=== PATIENT | female | born 1960 | race Hispanic/Latino ===

== ENCOUNTER → 2018-01-27 | Outpatient (CLI) | payer OTHER ==
--- NOTE | 2018-01-27 16:03 | Diagnostic Imaging Report ---
TECHNIQUE: Magnetic resonance imaging of the LEFT ANKLE was performed WITHOUT injected contrast. COMPARISON: None available. HISTORY: Ankle pain, evaluate posterior tibial tendon. FINDINGS: LIGAMENTS: Medial Complex: Deltoid intact. Lateral Complex: Tibiofibular ligaments intact. Anterior talofibular and calcaneofibular ligaments intact. TENDONS: Medial: Type II accessory navicular. No edema across the synchondrosis. Posterior tibial tendon intact. Flexor tendons are intact. Lateral: Peroneal tendons intact. Anterior: Anterior tibial and extensor tendons intact. Achilles: Achilles tendon intact. BONES: No focal or infiltrative bone marrow replacing abnormality. No acute fracture or osteonecrosis. JOINTS: Cartilage: Mild multifocal degenerative arthrosis most prominent talonavicular joint. Other: Fluid within the joints is within physiologic limits. SOFT TISSUES: Thickening of the proximal plantar fascia. No edema. IMPRESSION: Type II accessory navicular. No edema across the synchondrosis or posterior tibial tendinopathy. Signed by: Dr. Reji Reyna M.D. on 01/27/2018 4:00 PM
== END ==
LOC: MRI 14:44
PROVIDERS: ATTEND Podiatrist Foot & Ankle Surgery
DX: M25.572 Pain in left ankle and joints of left foot (principal); S86.112A Strain of other muscle(s) and tendon(s) of posterior muscle group at lower leg level, left leg, initial encounter